=== PATIENT | male | born 1935 | race Caucasian/White ===

== ENCOUNTER → 2017-07-15 | Outpatient (CLI) | payer OTHER ==
[~2017-07-15] MED LIST: FINA5TAB PO; PROP40TA7 PO
[2017-07-15 10:17] LABS: AST/SGOT 14 U/L (15-37); BLOOD UREA NITROGEN 13 mg/dl (7-18); BUN/CREATININE RATIO 21.3 (10-20); CALCIUM 9.1 mg/dl (8.5-10.1); CARBON DIOXIDE 28 mmol/L (21-32); CHLORIDE 105 mmol/L (98-107); CHOLESTEROL 177 mg/dl (0-200); GLUCOSE 110 mg/dl (70-99); POTASSIUM 3.6 mmol/L (3.5-5.1); SODIUM 138 mmol/L (136-145)
[2017-07-15 10:19] LABS: ALB/GLOB RATIO 1.1 (0.9-2); ALKALINE PHOSPHATASE 57 U/L (45-117); ALT/SGPT 22 U/L (12-78); CHOLESTEROL/HDL RATIO 2.6; HDL CHOLESTEROL 67 mg/dl; LDL CHOLESTEROL CALCULATED 87 mg/dl; TRIGLYCERIDES 113 mg/dl (0-150); VERY LOW DENSITY LIPOPROT CALC 23 mg/dl
== END | disposition home or self-care (01) ==
LOC: C.LAB 08:35
PROVIDERS: ATTEND Urology
DX: R33.9 Retention of urine, unspecified (principal); I10 Essential (primary) hypertension; E78.5 Hyperlipidemia, unspecified